=== PATIENT | female | born 1995 | race African-American/Black ===

== ENCOUNTER 2020-12-01 13:48 | Emergency (ER) | payer MEDICAID ==
[~2020-12-01] VITALS: Ht 160 cm; Wt 191.0 kg
[2020-12-01] MEDS ORDERED: SODIUM CHLORIDE 0.9% 1,000 ML IV ONE (14:30)
[2020-12-01 15:18] LABS: HEMATOCRIT. 35.5 % (36.0-48.0); MEAN CORPUSCULAR HEMOGLOBIN 21.8 pg (28.0-32.0); MEAN CORPUSCULAR VOLUME 70.4 fL (81.0-99.0); MEAN PLATELET VOLUME 8.2 fl (7.4-10.4); PLATELET 249 x1000/uL (130-400); RED BLOOD CELL COUNT 5.05 mill/uL (4.2-5.4); RED CELL DISTRIBUTION WIDTH 18.6 % (11.6-14.6)
[2020-12-01 15:25] LABS: CHLORIDE 101 mEq/L (98-107)
[2020-12-01 15:37] LABS: HCG SCREEN NEGATIVE
[2020-12-01 16:23] LABS: PLATELET ESTIMATE NORMAL
[2020-12-01 16:24] LABS: CLARITY URINE CLOUDY (CLEAR); COLOR URINE DARK YELLOW (YELLOW); KETONES URINE TRACE (NEGATIVE); LEUKOCYTE ESTERASE URINE TRACE (NEGATIVE); NITRITE URINE NEGATIVE (NEGATIVE); OCCULT BLOOD URINE 3+ (NEGATIVE); PROTEIN URINE 3+ (NEGATIVE); SPECIFIC GRAVITY URINE 1.034 (1.005-1.030); UROBILINOGEN URINE 0.2 E.U./dL (0.2-1.0)
[2020-12-01] MEDS ORDERED: NITR-87 MT (16:32)
[2020-12-01] MEDS ORDERED: ALBU6.7H9 INH (16:32)
[2020-12-01 16:57] VITALS: BP 107/77
== END 2020-12-01 19:16 | disposition home or self-care (01) ==
LOC: ER 13:48
DX: U07.1 COVID-19 (principal); E86.0 Dehydration; N39.0 Urinary tract infection, site not specified; R03.0 Elevated blood-pressure reading, without diagnosis of hypertension; E66.01 Morbid (severe) obesity due to excess calories; Z68.45 Body mass index [BMI] 70 or greater, adult
CPT/HCPCS: 36415; 71045; 80053; 81003; 81025; 84703; 85025; 96360; 99284; C9803; J7030; U0003